=== PATIENT | male | born 1940 | race Caucasian/White ===

== ENCOUNTER 2017-07-25 11:54 | Inpatient (IN) | payer OTHER ==
[2017-07-25] VITALS (9 sets, daily range): BP systolic 120–150; BP diastolic 85–93; PULSE 74–88; RESP 15–22; TEMP 98.4–99.4; O2SAT 95–98
[~2017-07-25] VITALS: Ht 177.8 cm; Wt 101.5 kg
[~2017-07-25 11:54] MED LIST: CEPH250 PO; PERC5TAB12 PO
--- NOTE | 2017-07-25 12:36 | PD ---
HPI Chief Complaint: Respiratory Symptoms Time Seen by Provider: 12:03 Travel History International Travel<30 days: No Contact w/Intl Traveler<30days: No Traveled to known affect area: No History of Present Illness HPI 76-year-old male presents to the ED for evaluation of shortness of breath with exertion as well as chest discomfort. Per patient his been going on for about 3 weeks. Per patient about 3 weeks is started severe than he went no evidence on history having cold-like symptoms. Per patient is went away on its own as well and then for the past 3 days is having more shortness of breath. No cough. Shortness of breath with exertion also with laying down. He does state that sometimes when he exerts himself he has some chest pressure. He denies any history of cardiac disease. He denies taking any blood pressure medications or any medications at all. He states he has not taken anything for this. Per patient he went to an urgent care today and an EKG and some testing in the told to come here to get evaluated secondary to an abnormal EKG. He was not given any aspirin or any other medications. Has no allergies to medication. Per patient the pain is pressure-like and is 3 out of 10 but his concern is more the shortness of breath. He recently came from [place] on May. Denies any fevers chills or sweats at this time. Per patient for the most part his cough and runny nose has improved. PFSH Past Medical History Arthritis: Yes Cancer: No Cardiovascular Problems: No Diminished Hearing: No Endocrine: No Genitourinary: Yes Immune Disorder: No Kidney Stones: Yes Musculoskeletal: Yes Neurologic: No Psychiatric: No Reproductive: No Respiratory: No Tetanus Vaccination: Unknown ?: Not Past Surgical History Abdominal Surgery: No Cardiac Surgery: No Ear Surgery: No Endocrine Surgery: No Eye Surgery: No Genitourinary Surgery: Yes (Prostate removed) Gynecologic Surgery: No Oral Surgery: No Prostatectomy: Yes Thoracic Surgery: No Social History Alcohol Use: No Tobacco Use: No Substance Use: No Allergies-Medications (Allergen,Severity, Reaction): Coded Allergies: No Known Allergies (Unverified Adverse Reaction, Unknown, 07/25/17) Reported Meds & Prescriptions Reported Meds & Active Scripts Active Percocet 5-325 mg (Oxycodone/Acetaminophen) Oxycodone 5/325 Acetaminophen Tab 1- 2 Tab PO Q6H PRN Keflex 250 mg Cap (Cephalexin Monohydrate) 250 Mg Cap 250 Mg PO TID Review of Systems Except as stated in HPI: all other systems reviewed are Neg Physical Exam Narrative GENERAL: SKIN: Warm and dry. HEAD: Atraumatic. Normocephalic. EYES: Pupils equal and round. No scleral icterus. No injection or drainage. ENT: No nasal bleeding or discharge. Mucous membranes pink and moist. Tongue is midline. No uvula deviation. NECK: Trachea midline. No JVD. CARDIOVASCULAR: Regular rate and rhythm. No murmur, S3, S4. RESPIRATORY: No accessory muscle use. Clear to auscultation. Breath sounds equal bilaterally. GASTROINTESTINAL: Abdomen soft, non-tender, nondistended. Hepatic and splenic margins not palpable. MUSCULOSKELETAL: Extremities without clubbing, cyanosis, or edema. No obvious deformities. Full range of motion of the upper and lower extremities bilaterally. 2+ pulses bilaterally. NEUROLOGICAL: Awake and alert. No obvious cranial nerve deficits. Motor grossly within normal limits. Five out of 5 muscle strength in the arms and legs. Normal speech. PSYCHIATRIC: Appropriate mood and affect; insight and judgment normal. Data Data Last Documented VS Vital Signs Date Time Temp Pulse Resp B/P (MAP) Pulse Ox O2 Delivery O2 Flow Rate FiO2 07/25/17 12:19 77 22 142/92 (109) 96 Room Air 07/25/17 11:54 98.6 Orders Orders Electrocardiogram (07/25/17 ) Electrocardiogram (07/25/17 12:09) Complete Blood Count With Diff (07/25/17 12:09) Comprehensive Metabolic Panel (07/25/17 12:09) Ckmb (Isoenzyme) Profile (07/25/17 12:09) Troponin I (07/25/17 12:09) B-Type Natriuretic Peptide (07/25/17 12:09) Prothrombin Time / Inr (Pt) (07/25/17 12:09) Act Partial Throm Time (Ptt) (07/25/17 12:09) Lipase (07/25/17 12:09) D-Dimer (07/25/17 12:09) Magnesium (Mg) (07/25/17 12:09) Chest, Single Ap (07/25/17 12:09) Iv Access Insert/Monitor (07/25/17 12:09) Ecg Monitoring (07/25/17 12:09) Oximetry (07/25/17 12:09) Aspirin (Aspirin) (07/25/17 12:45) Ct Pulmonary Angiogram (07/25/17 ) Iohexol 350 Inj (Omnipaque 350 Inj) (07/25/17 13:20) Admit Order (Ed Use Only) (07/25/17 14:22) Labs Laboratory Tests Test 07/25/17 12:15 White Blood Count 12.8 TH/MM3 Red Blood Count 5.30 MIL/MM3 Hemoglobin 15.7 GM/DL Hematocrit 47.1 % Mean Corpuscular Volume 89.0 FL Mean Corpuscular Hemoglobin 29.6 PG Mean Corpuscular Hemoglobin Concent 33.3 % Red Cell Distribution Width 14.4 % Platelet Count 236 TH/MM3 Mean Platelet Volume 7.6 FL Neutrophils (%) (Auto) 65.7 % Lymphocytes (%) (Auto) 25.4 % Monocytes (%) (Auto) 6.5 % Eosinophils (%) (Auto) 1.9 % Basophils (%) (Auto) 0.5 % Neutrophils # (Auto) 8.4 TH/MM3 Lymphocytes # (Auto) 3.2 TH/MM3 Monocytes # (Auto) 0.8 TH/MM3 Eosinophils # (Auto) 0.2 TH/MM3 Basophils # (Auto) 0.1 TH/MM3 CBC Comment DIFF FINAL Differential Comment Prothrombin Time 10.8 SEC Prothromb Time International Ratio 1.1 RATIO Activated Partial Thromboplast Time 26.2 SEC D-Dimer Quantitative (PE/DVT) 4.30 MG/L FEU Blood Urea Nitrogen 32 MG/DL Creatinine 1.42 MG/DL Random Glucose 89 MG/DL Total Protein 7.5 GM/DL Albumin 3.6 GM/DL Calcium Level 8.5 MG/DL Magnesium Level 2.0 MG/DL Alkaline Phosphatase 89 U/L Aspartate Amino Transf (AST/SGOT) 27 U/L Alanine Aminotransferase (ALT/SGPT) 34 U/L Total Bilirubin 0.6 MG/DL Sodium Level 142 MEQ/L Potassium Level 4.0 MEQ/L Chloride Level 109 MEQ/L Carbon Dioxide Level 26.8 MEQ/L Anion Gap 6 MEQ/L Estimat Glomerular Filtration Rate 49 ML/MIN Total Creatine Kinase 81 U/L Troponin I 0.10 NG/ML B-Type Natriuretic Peptide 252 PG/ML Lipase 108 U/L MDM Medical Decision Making Medical Screen Exam Complete: Yes Emergency Medical Condition: Yes Medical Record Reviewed: Yes Interpretation(s) CBC & BMP Diagram 07/25/17 12:15 Total Protein 7.5, Albumin 3.6, Calcium Level 8.5, Magnesium Level 2.0, Alkaline Phosphatase 89, Aspartate Amino Transf (AST/SGOT) 27, Alanine Aminotransferase (ALT/SGPT) 34, Total Bilirubin 0.6 Last Impressions Chest X-Ray 07/25/17 1209 Signed Impressions: Service Date/Time: Tuesday, July 25, 2017 12:35 - CONCLUSION: No acute disease. Kelvin Loomis MD CT Angiography 07/25/17 0000 Signed Impressions: Service Date/Time: Tuesday, July 25, 2017 13:15 - CONCLUSION: 1. Large bilateral compatible is an occluding both right and left main pulmonary arteries distally with sparing of the upper lobes. 2. 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 Ubaldo Canales MD troponin elevated at 0.10 CK WNL d-dimmer elevated at 4 Differential Diagnosis Chest pain versus atypical chest pain versus ACS versus CHF versus pneumonia versus PE Narrative Course 76-year-old male that presents to the ED for evaluation of shortness of breath and chest pain. Patient was properly examined and was found to have signs and symptoms of unclear etiology at this time. Labs and imaging were ordered. Labs and imaging were positive for significant pulmonary embolism. My attending was called by radiologist who was told the results to my attending. My attending spoke with the patient in regards to need for hospitalization and possible TPA versus heparin. Case was discussed with warehouse analyst Dr. Lebron who will evaluate the patient and admitted the patient. Patient and family were aware of findings and agreed to admission. Diagnosis Primary Impression: Pulmonary embolism Qualified Codes: I26.99 - Other pulmonary embolism without acute cor pulmonale Admitting Information Admitting Physician Requests: Admit Cuong Toledo Jul 25, 2017 12:36
[2017-07-25 12:40] LABS: AUTOMATED NEUTROPHIL # 8.4 TH/MM3 (1.8-7.7); BASOPHIL # 0.1 TH/MM3 (0-0.2); BASOPHIL % 0.5 % (0.0-2.0); EOSINOPHIL # 0.2 TH/MM3 (0-0.4); EOSINOPHIL % 1.9 % (0.0-4.0); HEMATOCRIT 47.1 % (39.0-51.0); HEMOGLOBIN 15.7 GM/DL (13.0-17.0); LYMPH % 25.4 % (9.0-44.0); LYMPHOCYTE # 3.2 TH/MM3 (1.0-4.8); MEAN CORPUSCULAR HEMOGLOBIN 29.6 PG (27.0-34.0); MEAN CORPUSCULAR HGB CONC 33.3 % (32.0-36.0); MEAN PLATELET VOLUME 7.6 FL (7.0-11.0); MONO % 6.5 % (0.0-8.0); MONOCYTE # 0.8 TH/MM3 (0-0.9); NEUT % 65.7 % (16.0-70.0); PLATELET COUNT 236 TH/MM3 (150-450); RED CELL DISTRIBUTION WIDTH 14.4 % (11.6-17.2); WHITE BLOOD COUNT 12.8 TH/MM3 (4.0-11.0)
[2017-07-25] MEDS ORDERED: ASPIRIN 325 MG TAB PO ONE (12:45)
[2017-07-25 12:51] LABS: D-DIMER 4.3 MG/L FEU (0.00-0.50); INTERNATIONAL NORMALIZED RATIO 1.1 RATIO; PROTHROMBIN TIME - PATIENT 10.8 SEC (9.8-11.6)
[2017-07-25 12:55] LABS: ALBUMIN 3.6 GM/DL (3.4-5.0); ALT (GPT) 34 U/L (12-78); AST (GOT) 27 U/L (15-37); BICARBONATE 26.8 MEQ/L (21.0-32.0); BLOOD UREA NITROGEN 32 MG/DL (7-18); CALCIUM 8.5 MG/DL (8.5-10.1); CHLORIDE 109 MEQ/L (98-107); CREATININE 1.42 MG/DL (0.60-1.30); GLOMERULAR FILTRATION RATE 49 ML/MIN (>89); GLUCOSE,RANDOM 89 MG/DL (74-106); LIPASE 108 U/L (73-393); SODIUM (NA) 142 MEQ/L (136-145)
[2017-07-25 13:00] LABS: ALKALINE PHOSPHATASE 89 U/L (45-117); TOTAL BILIRUBIN ADULT 0.6 MG/DL (0.2-1.0); TOTAL PROTEIN 7.5 GM/DL (6.4-8.2)
--- NOTE | 2017-07-25 13:01 | RADRPT ---
EXAM DATE/TIME: 07/25/2017 12:35 [facility] COMPARISON: No previous studies available for comparison. INDICATIONS : Chest pain and pressure MEDICAL HISTORY : None. SURGICAL HISTORY : Prostatectomy. ENCOUNTER: Initial ACUITY: 1 day PAIN SCORE: 5/10 LOCATION: Bilateral chest FINDINGS: A single view of the chest demonstrates the lungs to be symmetrically aerated without evidence of mas s, infiltrate or effusion. The cardiomediastinal contours are unremarkable. Degenerative changes are noted throughout the thoracic spine. CONCLUSION: No acute disease. Kelvin Loomis MD on July 25, 2017 at 12:58 Board Certified Radiologist. This report was verified electronically.
[2017-07-25] MEDS ORDERED: IOHEXOL 350 MG/ML 10 ML VIAL (for RAD DIAG) IVCONTRAST ONE (13:20)
--- NOTE | 2017-07-25 13:55 | RADRPT ---
EXAM DATE/TIME: 07/25/2017 13:15 [facility] COMPARISON: No previous studies available for comparison. INDICATIONS : Shortness of breath and chest discomfort. IV CONTRAST: 69 cc Omnipaque 350 (iohexol) IV RADIATION DOSE: 20.49 CTDIvol (mGy) MEDICAL HISTORY : Renal calculi. SURGICAL HISTORY : None. ENCOUNTER: Initial ACUITY: 1 day PAIN SCALE: 3/10 LOCATION: Bilateral chest TECHNIQUE: Volumetric scanning of the chest was performed using a pulmonary embolism protocol MIP images were re constructed. Using automated exposure control and adjustment of the mA and/or kV according to patien t size, radiation dose was kept as low as reasonably achievable to obtain optimal diagnostic quality images. DICOM format image data is available electronically for review and comparison. Follow-up recommendations for detected pulmonary nodules are based at a minimum on nodule size and pa tient risk factors according to Fleischner Society Guidelines. FINDINGS: There is large bilateral pulmonary embolism in worse on the right on the left occluding the the dista l main right pulmonary artery and in the distal left pulmonary artery. There is perfusion to both upp er lobes. There is no evidence of pneumonia. No pleural effusions are identified. There is a severely enlarged thyroid gland bilaterally beginning at the level of the true cords exten ding below the thoracic inlet narrowing the tracheal dimension by least 50% in the transverse plane. Correlation be helpful versu history of stridor. CONCLUSION: 1. Large bilateral compatible is an occluding both right and left main pulmonary arteries distally wi th sparing of the upper lobes. 2. 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 Ubaldo Canales MD on July 25, 2017 at 13:46 Board Certified Radiologist. This report was verified electronically.
[2017-07-25] MEDS ORDERED: ONDANSETRON HCL 4 MG/2 ML VIAL IV PUSH PRN (15:00)
[2017-07-25] MEDS ORDERED: MAGNESIUM HYDROXIDE SUSP 30 ML CUP PO PRN (15:00)
[2017-07-25] MEDS ORDERED: POTASSIUM PHOSPHATE MONOBASIC 500 MG TAB PO PRN (15:00)
[2017-07-25] MEDS ORDERED: POTASSIUM CHLORIDE 25 MEQ EFFERVESCENT TAB PO PRN (15:00)
[2017-07-25] MEDS ORDERED: POTASSIUM PHOSPHATE MONOBASIC 500 MG TAB PO/TUBE PRN (15:00)
[2017-07-25] MEDS ORDERED: CHLORHEXIDINE GLUCONATE 2 % 1 PACK (2 CLOTHS) TOP PRN (15:00)
[2017-07-25] MEDS ORDERED: MAGNESIUM OXIDE 400 MG TAB PO PRN (15:00)
[2017-07-25] MEDS ORDERED: RESP: ALBUTEROL 2.5 MG/IPRATROPIUM 0.5 MG NEB (PRN) INH (15:00)
[2017-07-25] MEDS ORDERED: ALTEPLASE INJ 50 MG in WATER STERILE FOR INJ 50 ML IV ONE (15:00)
[2017-07-25] MEDS ORDERED: MAGNESIUM SULFATE INJ 4 GM in SODIUM CHLORIDE 0.9% INJ 92 ML IV PRN (15:00)
[2017-07-25] MEDS ORDERED: POTASSIUM PHOSPHATE INJ 30 MMOL in SODIUM CHLOR 0.9% 250 ML INJ 250 ML IV PRN (15:00)
[2017-07-25] MEDS ORDERED: POTASSIUM CHLOR 40 MEQ PREMIX 100 ML IV PRN ×2 (15:00)
[2017-07-25] MEDS ORDERED: MISCELLANEOUS NURSING INFORMATION XX SCH (15:00)
[2017-07-25] MEDS ORDERED: POTASSIUM CHLOR 20 MEQ PREMIX 100 ML IV PRN ×2 (15:00)
[2017-07-25] MEDS ORDERED: SODIUM PHOSPHATE INJ 30 MMOL in SODIUM CHLOR 0.9% 250 ML INJ 240 ML IV PRN (15:00)
[2017-07-25] MEDS ORDERED: MAGNESIUM SULFATE INJ 2 GM in SODIUM CHLORIDE 0.9% INJ 96 ML IV PRN (15:00)
--- NOTE | 2017-07-25 15:02 | HHI.HP ---
[facility] Service Critical Care Medicine Primary Care Physician No Primary Care Physician Admission Diagnosis submassive pulmonary embolism Diagnosis: Chief Complaint: shortness of breath Travel History International Travel<30 Days: No Contact w/Intl Traveler <30 Da: No Traveled to Known Affected Are: No History of Present Illness this is a 76yM otherwise healthy who presents with a few days of shortness of breath which culminated in acute dyspnea today. he states he can't even get out of bed or walk without being severely short of breath. he has no history of this. he and his are from [place], and take a 3-day long car trip back and forth twice a year, but the last time he had a long car ride was in May. he is usually very active. He denies any fevers, chills, chest pain, palpitations, cough, sputum production. denies n/v/c/d or abdominal pain. otherwise has been in his usual state of health. does have a known goiter that he states is smaller than it was a year ago. he says he "had a test on this and they told him it wasn't cancer a year ago." He also had prostate cancer > 10 years ago and had a prostatectomy and since then he states he has been cancer free. In the ED, a CT pulmonary angiogram demonstrated near-saddle pulmonary embolism with near-complete obstruction of all subsegmental arteries. BNP and troponins are elevated in a pattern to suggest biomarker evidence of RV strain. STAT 2d echo demonstrates acute right ventricular dilation and dysfunction with severe pulmonary hypertension. Critical care medicine has been consulted to evaluate and manage his sub-massive pulmonary embolism with associated dyspnea. Review of Systems Constitutional: DENIES: Diaphoretic episodes, Fatigue, Fever, Weight gain, Weight loss, Chills, Night Sweats Respiratory: COMPLAINS OF: Shortness of breath, DENIES: Apneas, Cough, Snoring , Wheezing, Hemoptysis, Sputum production Cardiovascular: COMPLAINS OF: Dyspnea on Exertion, DENIES: Chest pain, Palpitations, Syncope, PND, Lower Extremity Edema, Orthopnea, Claudication Gastrointestinal: DENIES: Abdominal pain, Black stools, Bloody stools, Constipation, Diarrhea, Nausea, Vomiting Hematologic/lymphatic: DENIES: Bruising Neurologic: DENIES: Headache Psychiatric: DENIES: Anxiety, Confusion Past Family Social History Allergies: Coded Allergies: No Known Allergies (Unverified Allergy, Unknown, 07/25/17) Past Medical History prior prostate cancer, in remission per patient thyromegally, "has been checked a year ago and there wasn't cancer there. It has gone down in size in the last year" Past Surgical History prostatectomy Reported Medications Percocet 5-325 mg (Oxycodone/Acetaminophen) Oxycodone 5/325 Acetaminophen Tab 1- 2 Tab PO Q6H PRN Keflex 250 mg Cap (Cephalexin Monohydrate) 250 Mg Cap 250 Mg PO TID does not take aspirin or any blood thinners. Active Ordered Medications See MAR Family History no family history of bleeding disorders or blood clotting disorders. Social History never smoked, does not drink etoh. denies other drugs. Physical Exam Vital Signs Vital Signs Date Time Temp Pulse Resp B/P (MAP) Pulse Ox O2 Delivery O2 Flow Rate FiO2 07/25/17 12:19 77 22 142/92 (109) 96 Room Air 07/25/17 11:54 98.6 88 18 145/85 (105) 95 Physical Exam GENERAL: Elderly male, sitting in bed, in distress due to his dyspnea HEENT: Normocephalic. Atraumatic. Pupils equal, round, reactive, conjugate. Mucous membranes are moist NECK: Trachea is midline. There is no JVD. CHEST: Tachypneic, mildly labored. Room air. CARDIOVASCULAR: Tachycardic rate, regular rhythm. Sinus by telemetry ABDOMEN: Soft, nontender, nondistended. No guarding. MUSCULOSKELETAL: Pulses 2+. No peripheral edema. NEUROLOGICAL: GCS 15. RASS 0. No focal deficits. Follows commands. Laboratory Laboratory Tests Test 07/25/17 12:15 White Blood Count 12.8 Red Blood Count 5.30 Hemoglobin 15.7 Hematocrit 47.1 Mean Corpuscular Volume 89.0 Mean Corpuscular Hemoglobin 29.6 Mean Corpuscular Hemoglobin Concent 33.3 Red Cell Distribution Width 14.4 Platelet Count 236 Mean Platelet Volume 7.6 Neutrophils (%) (Auto) 65.7 Lymphocytes (%) (Auto) 25.4 Monocytes (%) (Auto) 6.5 Eosinophils (%) (Auto) 1.9 Basophils (%) (Auto) 0.5 Neutrophils # (Auto) 8.4 Lymphocytes # (Auto) 3.2 Monocytes # (Auto) 0.8 Eosinophils # (Auto) 0.2 Basophils # (Auto) 0.1 CBC Comment DIFF FINAL Differential Comment Prothrombin Time 10.8 Prothromb Time International Ratio 1.1 Activated Partial Thromboplast Time 26.2 D-Dimer Quantitative (PE/DVT) 4.30 Blood Urea Nitrogen 32 Creatinine 1.42 Random Glucose 89 Total Protein 7.5 Albumin 3.6 Calcium Level 8.5 Magnesium Level 2.0 Alkaline Phosphatase 89 Aspartate Amino Transf (AST/SGOT) 27 Alanine Aminotransferase (ALT/SGPT) 34 Total Bilirubin 0.6 Sodium Level 142 Potassium Level 4.0 Chloride Level 109 Carbon Dioxide Level 26.8 Anion Gap 6 Estimat Glomerular Filtration Rate 49 Total Creatine Kinase 81 Troponin I 0.10 B-Type Natriuretic Peptide 252 Lipase 108 Result Diagram: 07/25/17 1215 07/25/17 1215 Imaging Last Impressions Chest X-Ray 07/25/17 1209 Signed Impressions: Service Date/Time: Tuesday, July 25, 2017 12:35 - CONCLUSION: No acute disease. Kelvin Loomis MD Lower Extremity Ultrasound 07/25/17 0000 Signed Impressions: Service Date/Time: Tuesday, July 25, 2017 16:43 - CONCLUSION: No evidence of DVT Jose Stephenson MD CT Angiography 07/25/17 0000 Signed Impressions: Service Date/Time: Tuesday, July 25, 2017 13:15 - CONCLUSION: 1. Large bilateral compatible is an occluding both right and left main pulmonary arteries distally with sparing of the upper lobes. 2. 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 MD Jj Clark VTE Risk Assessment Caprini VTE Risk Assessment: Mod/High Risk (score >= 2) Caprini Risk Assessment Model Point Value = 1 Point Value = 2 Point Value = 3 Point Value = 5 Age 41-60 Minor surgery BMI > 25 kg/m2 Swollen legs Varicose veins or History of unexplained or recurrent spontaneous Oral contraceptives or hormone replacement Sepsis (< 1 month) Serious lung disease, including pneumonia (< 1 month) Abnormal pulmonary function Acute myocardial infarction Congestive heart failure (< 1 month) History of inflammatory bowel disease Medical patient at bed rest Age 61-74 Arthroscopic surgery Major open surgery (> 45 min) Laparoscopic surgery (> 45 min) Malignancy Confined to bed (> 72 hours) Immobilizing plaster cast Central venous access Age >= 75 History of VTE Family history of VTE Factor V Leiden Prothrombin [id number] Lupus anticoagulant Anticardiolipin antibodies Elevated serum homocysteine Heparin-induced thrombocytopenia Other congenital or acquired thrombophilia Stroke (< 1 month) Elective arthroplasty Hip, pelvis, or leg fracture Acute spinal cord injury (< 1 month) Prophylaxis Regimen Total Risk Factor Score Risk Level Prophylaxis Regimen 0-1 Low Early ambulation 2 Moderate Order ONE of the following: *Sequential Compression Device (SCD) *Heparin 5000 units SQ BID 3-4 Higher Order ONE of the following medications: *Heparin 5000 units SQ TID *Enoxaparin/Lovenox 40 mg SQ daily (WT < 150 kg, CrCl > 30 mL/min) *Enoxaparin/Lovenox 30 mg SQ daily (WT < 150 kg, CrCl > 10-29 mL/min) *Enoxaparin/Lovenox 30 mg SQ BID (WT < 150 kg, CrCl > 30 mL/min) AND/OR *Sequential Compression Device (SCD) 5 or more Highest Order ONE of the following medications: *Heparin 5000 units SQ TID (Preferred with Epidurals) *Enoxaparin/Lovenox 40 mg SQ daily (WT < 150 kg, CrCl > 30 mL/min) *Enoxaparin/Lovenox 30 mg SQ daily (WT < 150 kg, CrCl > 10-29 mL/min) *Enoxaparin/Lovenox 30 mg SQ BID (WT < 150 kg, CrCl > 30 mL/min) AND *Sequential Compression Device (SCD) Assessment and Plan Assessment and Plan Assessment: 76 old male with submassive pulmonary embolism. I have had extensive discussion with the patient and his regarding the risk/benefit ratio of conservative management with anticoagulation alone vs. the risk/ benefit ratio of lytic therapy. We discussed the ~10% risk of major life- threatening bleeding with iv TPA administration, including but not limited to life-threatening intracranial and GI bleeding. We also discussed the elevated risk of sudden cardiac in the coming weeks associated with submassive PE, as well as the almost 30% risk of development of severe WHO Class IV Pulmonary Hypertension secondary to Chronic Thromboembolic Pulmonary Hypertension (CTEPH) if patients are not lysed with this degree of clot burden. After a full discussion of the risks and benefits, the patient and his elect to pursue lytic therapy. 50mg iv TPA continuous infusion over 1 hour was emergently ordered and administered in the emergency department, following which a no- bolus heparin drip was initiated. The patient will be transferred to the CVICU for close monitoring. given his clot burden and both echocardiographic and biomarker evidence of significant RV strain, the patient remains critically ill and at high risk for sudden cardiac due to submassive PE. Submassive PE Severe RV Dysfunction Severe Pulmonary Hypertension - admit to CVICU - 50mg iv TPA - heparin drip - frequent neuro checks - trend hgb - nc for goal spo2 > 90% - unclear etiology for this PE: history of prior cancers, but nothing active. no history of hypercoagulable state. may need additional work-up in the future. - b/l LE ultrasound to eval for additional clot burden. - goal sbp < 180. - bedrest. hob elevated. - heart healthy diet as tolerated - scd's, pepcid. heparin drip for ppx. Critical care time: 46 minutes, exclusive of separately billable procedures. Code Status Full Code Jaquan Zavala MD Jul 25, 2017 15:02
[2017-07-25] MEDS: SODIUM CHLOR 0.9% 1000 ML INJ 1,000 ML IV SCH (16:35)
[2017-07-25] MEDS: HEPARIN-D5W 25,000 U/250 ML 250 ML IV PRN (16:37)
--- NOTE | 2017-07-25 17:01 | ECHRPT ---
Indication: EF assessment for CHF CONCLUSIONS The left ventricular systolic function is low normal with an estimated ejection fraction in the rang e of 50- 55%. Wall thickness is measured at the upper limits of normal. Normal left ventricular size. There is severe tricuspid regurgitation. The estimated pulmonary arterial pressure is 79.2 mmHg. There is estimated severe pulmonary hypertension present ( > 70 mmHg). The right atrial size is [id number] dilated. The right ventricle is moderately dilated. BP: / HR: Rhythm: Sinus MEASUREMENTS (Male / Female) Normal Values Technical Quality:Good 2D ECHO LV Diastolic Diameter PLAX 4.3 cm 4.2 - 5.9 / 3.9 - 5.3 cm LV Systolic Diameter PLAX 3.4 cm IVS Diastolic Thickness 1.1 cm 0.6 - 1.0 / 0.6 - 0.9 cm LVPW Diastolic Thickness 1.1 cm 0.6 - 1.0 / 0.6 - 0.9 cm LV Relative Wall Thickness 0.5 DOPPLER TR Peak Velocity 416.0 cm/s TR Peak Gradient 69.2 mmHg Right Atrial Pressure 10.0 mmHg Pulmonary Artery Systolic Pressu 79.2 mmHg Right Ventricular Systolic Press 79.2 mmHg FINDINGS LEFT VENTRICLE The left ventricular systolic function is low normal with an estimated ejection fraction in the rang e of 50- 55%. Wall thickness is measured at the upper limits of normal. Normal left ventricular size. RIGHT VENTRICLE The right ventricle is moderately dilated. LEFT ATRIUM The left atrial size is normal. RIGHT ATRIUM The right atrial size is [id number] dilated. ATRIAL SEPTUM Normal atrial septal thickness without atrial level shunting by limited color doppler interrogation. AORTA The aortic root and proximal ascending aorta are normal in size on limited imaging. MITRAL VALVE Structurally normal mitral valve. No mitral valve stenosis or regurgitation. AORTIC VALVE Trileaflet aortic valve. No aortic valve stenosis or regurgitation. TRICUSPID VALVE There is severe tricuspid regurgitation. The estimated pulmonary arterial pressure is 79.2 mmHg. There is estimated severe pulmonary hypertension present ( > 70 mmHg). PULMONARY VALVE No pulmonary valve regurgitation or stenosis. VESSELS The inferior vena cava is normal in size. PERICARDIUM No pericardial effusion. Jose Sanon MD (Electronically Signed) Final Date:25 July 2017 16:59
--- NOTE | 2017-07-25 18:03 | RADRPT ---
EXAM DATE/TIME: 07/25/2017 16:43 [facility] COMPARISON: No previous studies available for comparison. INDICATIONS : Pulmonary embolism. MEDICAL HISTORY : Renal calculi. Arthritis. Pulmonary embolism. Anticoagulant therapy, Heparin. SURGICAL HISTORY : Prostatectomy. ENCOUNTER: Initial ACUITY: 2 day PAIN SCORE: 0/10 LOCATION: Bilateral leg. TECHNIQUE: Venous ultrasound of the left and right leg was performed from the inguinal ligament to the proximal calf. Real-time, color Doppler and spectral tracing, compression and augmentation techniques were us ed. FINDINGS: RIGHT LEG: There is normal compressibility of the deep venous system from the inguinal region to the proximal ca lf. No echogenic clot is seen in the lumen of the common femoral, femoral, popliteal, and posterior tibial veins. There is a normal response of the venous system to proximal and distal augmentation an d respiration. LEFT LEG: There is normal compressibility of the deep venous system from the inguinal region to the proximal ca lf. No echogenic clot is seen in the lumen of the common femoral, femoral, popliteal, and posterior tibial veins. There is a normal response of the venous system to proximal and distal augmentation an d respiration. CONCLUSION: No evidence of DVT Jose Stephenson MD on July 25, 2017 at 18:00 Board Certified Radiologist. This report was verified electronically.
[2017-07-25] MEDS: FAMOTIDINE 20 MG/2 ML VIAL IV PUSH SCH (20:24)
[2017-07-25] MEDS: DOCUSATE SODIUM 50 MG/SENNA 8.6 MG TAB PO SCH (21:00)
[2017-07-26] VITALS (9 sets, daily range): BP systolic 131–141; BP diastolic 79–92; PULSE 65–79; RESP 16–22; TEMP 98–98.7; O2SAT 95–98
[2017-07-26] MEDS: SODIUM CHLOR 0.9% 1000 ML INJ 1,000 ML IV SCH (02:48)
[2017-07-26] MEDS: HEPARIN-D5W 25,000 U/250 ML 250 ML IV PRN ×2 (03:24→16:03)
[2017-07-26] MEDS: CHLORHEXIDINE GLUCONATE 2 % 1 PACK (2 CLOTHS) TOP SCH (04:00)
[2017-07-26 04:09] LABS: HEMOGLOBIN 13.8 GM/DL (13.0-17.0); MEAN CELL VOLUME 89.1 FL (80.0-100.0); MEAN CORPUSCULAR HGB CONC 33.7 % (32.0-36.0); MEAN PLATELET VOLUME 8.1 FL (7.0-11.0); PLATELET COUNT 178 TH/MM3 (150-450); RED CELL DISTRIBUTION WIDTH 14.4 % (11.6-17.2); WHITE BLOOD COUNT 10.8 TH/MM3 (4.0-11.0)
[2017-07-26 04:23] LABS: BICARBONATE 24.4 MEQ/L (21.0-32.0); CALCIUM 8.1 MG/DL (8.5-10.1); CREATININE 1.09 MG/DL (0.60-1.30)
[2017-07-26] MEDS: DOCUSATE SODIUM 50 MG/SENNA 8.6 MG TAB PO SCH ×2 (08:42→21:00)
[2017-07-26] MEDS: FAMOTIDINE 20 MG/2 ML VIAL IV PUSH SCH ×2 (08:43→20:47)
--- NOTE | 2017-07-26 12:33 | HHI.CCPN ---
Subjective Remarks/Hospital Course this is a 76yM otherwise healthy who presents with a few days of shortness of breath which culminated in acute dyspnea today. he states he can't even get out of bed or walk without being severely short of breath. he has no history of this. he and his are from [place], and take a 3-day long car trip back and forth twice a year, but the last time he had a long car ride was in May. he is usually very active. He denies any fevers, chills, chest pain, palpitations, cough, sputum production. denies n/v/c/d or abdominal pain. otherwise has been in his usual state of health. does have a known goiter that he states is smaller than it was a year ago. he says he "had a test on this and they told him it wasn't cancer a year ago." He also had prostate cancer > 10 years ago and had a prostatectomy and since then he states he has been cancer free. In the ED, a CT pulmonary angiogram demonstrated near-saddle pulmonary embolism with near-complete obstruction of all subsegmental arteries. BNP and troponins are elevated in a pattern to suggest biomarker evidence of RV strain. STAT 2d echo demonstrates acute right ventricular dilation and dysfunction with severe pulmonary hypertension. Critical care medicine has been consulted to evaluate and manage his sub-massive pulmonary embolism with associated dyspnea. 07/26: Patient is on 2L oxygen with good sats. On Heparin drip. awake and alert. Objective Vital Signs Date Time Temp Pulse Resp B/P (MAP) Pulse Ox O2 Delivery O2 Flow Rate FiO2 07/26/17 11:00 73 07/26/17 11:00 98.0 20 141/88 (105) 96 07/26/17 11:00 Nasal Cannula 2.00 Intake and Output 07/26/17 07/26/17 07/27/17 08:00 16:00 00:00 Intake Total 1723 ml Output Total 900 ml Balance 823 ml Result Diagram: 07/26/174 07/26/17 0314 Other Results Laboratory Tests Test 07/25/17 16:00 07/25/17 21:38 07/26/17 03:14 Nasal Screen MRSA (PCR) MRSA NOT DETECTED Activated Partial Thromboplast Time 43.9 SEC 60.1 SEC White Blood Count 10.8 TH/MM3 Red Blood Count 4.60 MIL/MM3 Hemoglobin 13.8 GM/DL Hematocrit 41.0 % Mean Corpuscular Volume 89.1 FL Mean Corpuscular Hemoglobin 30.0 PG Mean Corpuscular Hemoglobin Concent 33.7 % Red Cell Distribution Width 14.4 % Platelet Count 178 TH/MM3 Mean Platelet Volume 8.1 FL Blood Urea Nitrogen 26 MG/DL Creatinine 1.09 MG/DL Random Glucose 88 MG/DL Calcium Level 8.1 MG/DL Sodium Level 140 MEQ/L Potassium Level 3.7 MEQ/L Chloride Level 107 MEQ/L Carbon Dioxide Level 24.4 MEQ/L Anion Gap 9 MEQ/L Estimat Glomerular Filtration Rate 66 ML/MIN Imaging Last Impressions Chest X-Ray 07/25/17 1209 Signed Impressions: Service Date/Time: Tuesday, July 25, 2017 12:35 - CONCLUSION: No acute disease. Kelvin Loomis MD Lower Extremity Ultrasound 07/25/17 0000 Signed Impressions: Service Date/Time: Tuesday, July 25, 2017 16:43 - CONCLUSION: No evidence of DVT Jose Stephenson MD CT Angiography 07/25/17 0000 Signed Impressions: Service Date/Time: Tuesday, July 25, 2017 13:15 - CONCLUSION: 1. Large bilateral compatible is an occluding both right and left main pulmonary arteries distally with sparing of the upper lobes. 2. 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 Ubaldo Canales MD Objective Remarks GENERAL: Patient is lying in bed in NAD/ SKIN: Warm and dry. HEAD: Normocephalic. EYES: No scleral icterus. No injection or drainage. NECK: Supple, trachea midline. No JVD or lymphadenopathy. CARDIOVASCULAR: Regular rate and rhythm without murmurs, gallops, or rubs. RESPIRATORY: Breath sounds equal bilaterally. No accessory muscle use. GASTROINTESTINAL: Abdomen soft, non-tender, nondistended. MUSCULOSKELETAL: No cyanosis, or edema. Neuro: Awake and alert. A/P Assessment and Plan 1) Resp Insuff 2)Submassive PE s/p TPA 3)Severe RV Dysfunction, Severe Pulmonary Hypertension 4)Mild AUDREY Plan Neuro: Awake and alert Pulm: Continue with oxygen keep sat >92% Bronchodilators, Continue with heparin drip. Monitor PTT per protocol. CV: Monitor HR and BP keep MAP>65mmHg : Monitor renal function, electrolytes replacement as needed. d/c IVF GI: On PO diet ID: Monitor for signs of infections ( Fever, WBC) Heme: Monitor CBC, coags- on Heparin drip. Endo: SSI if needed for glycemic control. GI prophylaxis- on pepcid DVT prophylaxis- on Heparin drip. Doppler US LE negative for DVT Will transfer to [facility] and consult [facility] for medical management Level 2 Leandro Sanders MD Jul 26, 2017 12:33
--- NOTE | 2017-07-26 18:43 | EKG ---
Date Performed: 07/25/2017 Time Performed: 12:10:24 PTAGE: 76 years EKG: Sinus rhythm MODERATE T-WAVE ABNORMALITY, CONSIDER ANTERIOR ISCHEMIA Compared to previous tracing, there are now anterior T wave inversions concerning for ischemia Clinical correlation is recommended ABNORMAL ECG PREVIOUS TRACING : 11/10/2015 09.30 DOCTOR: Rachael Seo Interpretating Date/Time 07/26/2017 18:43:13
[2017-07-27] VITALS (29 sets, daily range): BP systolic 114–138; BP diastolic 60–81; PULSE 60–74; RESP 16–21; TEMP 97.8–98.4; O2SAT 94–99
[2017-07-27] MEDS: CHLORHEXIDINE GLUCONATE 2 % 1 PACK (2 CLOTHS) TOP SCH (04:00)
[2017-07-27 06:03] LABS: AUTOMATED NEUTROPHIL # 6.1 TH/MM3 (1.8-7.7); BASOPHIL # 0.1 TH/MM3 (0-0.2); BASOPHIL % 0.8 % (0.0-2.0); EOSINOPHIL # 0.3 TH/MM3 (0-0.4); EOSINOPHIL % 2.8 % (0.0-4.0); HEMATOCRIT 41.1 % (39.0-51.0); HEMOGLOBIN 14.1 GM/DL (13.0-17.0); LYMPH % 30.6 % (9.0-44.0); LYMPHOCYTE # 3.2 TH/MM3 (1.0-4.8); MEAN CELL VOLUME 88.6 FL (80.0-100.0); MEAN CORPUSCULAR HEMOGLOBIN 30.3 PG (27.0-34.0); MEAN CORPUSCULAR HGB CONC 34.2 % (32.0-36.0); MEAN PLATELET VOLUME 8.2 FL (7.0-11.0); MONO % 7.8 % (0.0-8.0); MONOCYTE # 0.8 TH/MM3 (0-0.9); PLATELET COUNT 183 TH/MM3 (150-450); RED BLOOD COUNT 4.64 MIL/MM3 (4.50-5.90); RED CELL DISTRIBUTION WIDTH 14.2 % (11.6-17.2); WHITE BLOOD COUNT 10.6 TH/MM3 (4.0-11.0)
[2017-07-27 06:29] LABS: BICARBONATE 24.4 MEQ/L (21.0-32.0); CALCIUM 8.4 MG/DL (8.5-10.1); CREATININE 1.05 MG/DL (0.60-1.30)
[2017-07-27] MEDS: HEPARIN-D5W 25,000 U/250 ML 250 ML IV PRN (06:40)
[2017-07-27] MEDS: FAMOTIDINE 20 MG/2 ML VIAL IV PUSH SCH ×2 (08:41→21:00)
[2017-07-27] MEDS: DOCUSATE SODIUM 50 MG/SENNA 8.6 MG TAB PO SCH ×2 (08:41→21:01)
[2017-07-27 12:41] LABS: FREE T4 1.15 NG/DL (0.76-1.46)
--- NOTE | 2017-07-27 12:44 | RADRPT ---
EXAM DATE/TIME: 07/27/2017 11:48 [facility] COMPARISON: No previous studies available for comparison. INDICATIONS : Pulmonary embolism. MEDICAL HISTORY : Renal calculi. Arthritis. Pulmonary embolism. Anticoagulant therapy, Heparin. SURGICAL HISTORY : Prostatectomy. ENCOUNTER: Initial ACUITY: 3 days PAIN SCORE: 0/10 LOCATION: Bilateral arm. FINDINGS: Patient is positive for occlusive or nonocclusive deep venous thrombosis in the left axillary vein an d left basilic vein. No DVT in the right upper extremity. Incidental note made of complex solid thyroid nodules measuring up to 3 cm bilaterally. Recommend cor relation with thyroid ultrasound. CONCLUSION: 1. Positive for occlusive and nonocclusive deep venous thrombosis in the left axillary vein and left basilic vein. Negative right upper extremity for DVT. 2. Complex 3 cm bilateral thyroid nodules. Recommend thyroid ultrasound. Benny Banerjee MD on July 27, 2017 at 12:41 Board Certified Radiologist. This report was verified electronically.
[2017-07-27] MEDS ORDERED: XARE20TA PO (14:43)
[2017-07-27] MEDS ORDERED: XARE15TA PO (14:43)
[2017-07-27] MEDS ORDERED: WARFARIN SOD 5 MG TAB PO SCH (16:00)
[2017-07-27] MEDS ORDERED: RIVAROXABAN 15 MG TAB PO ONE (16:00)
--- NOTE | 2017-07-27 18:42 | MB ---
cc: FREDI PINTO M.D., JEFFREY D. MD DATE OF CONSULTATION: 07/27/[address] Cooper REASON FOR CONSULTATION Hematology consulted to render opinion guarding patient with massive pulmonary embolism. HISTORY OF PRESENT ILLNESS: The patient is very pleasant 76-year-old male from [facility], spending his time in [place], presented with complaint of worsening shortness of breath. He stated he started having shortness of breath about 3-4 weeks ago. He had upper respiratory infection that turned to pneumonia. However, his symptoms were progressively getting worse and by Wednesday, "could not even get out of bed and walk across a room." He was brought into the emergency room and CT scan showed massive bilateral pulmonary embolism. He had evidence of right heart strain. He received thrombolytic therapy yesterday. He is feeling much better today. He had history of prostate cancer about 20 years ago but stated the PSA has been very low. The last time he checked was about two years ago. He denies any constitutional symptoms. He denies any personal history or family history of thromboembolic event. He denies any lower extremity edema or upper extremity edema. He states the pleuritic pain has resolved. He has no nausea, vomiting or abdominal pain. PAST MEDICAL HISTORY Prostate cancer diagnosed more than 20 years ago. Goiter. PAST SURGICAL HISTORY Prostatectomy more than 20 years ago. Biopsy of thyroid nodule in 2017. FAMILY HISTORY: Two brothers, one brother had some sort of cancer. He has three sons, one daughter, all healthy. No family history of thromboembolic event. SOCIAL HISTORY: No tobacco. He drinks occasionally. He lives in [facility]. 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 ALLERGIES: NO KNOWN DRUG ALLERGIES. CURRENT MEDICATIONS: 1. Xarelto. 2. Famotidine. 3. Jaye-Colace REVIEW OF SYSTEMS: Constitutional: Negative. Eyes: Negative. ENT: Negative. Cardiovascular: As above. Respiratory: As above. GI: Denies any nausea, vomiting, diarrhea, abdominal pain. No change in bowel habits. : No dysuria, hematuria. Musculoskeletal: Negative. Endocrine: Negative. Hematology: As above. Dermatology: Negative. Psychiatric: Negative. Neurologic: Negative. PHYSICAL EXAMINATION Vitals: Temperature 97.8, blood pressure 128/77, O2 saturation 92% on room air. General: He is alert and oriented x3. No acute distress. HEENT: Atraumatic, normocephalic. Pupils equal, round and reactive to light. Extraocular muscles intact. No scleral icterus. Oropharynx: Dry mucosa, no lesions. No thrush. Neck: No thyromegaly. No palpable masses. Lymphatic: No palpable cervical, clavicular, axillary lymph node. Cardiovascular: Regular S1-S2, no murmurs. Lungs: Clear to auscultation bilaterally. No wheezing. Abdomen: Soft, nontender. I could not palpate liver or spleen. Extremities: No significant edema. Lower extremities: Could not palpate any calf tenderness. There is only slight puffiness of bilateral upper extremities. No paravertebral tenderness. Skin: No rash or petechiae. LABORATORY DATA: Laboratory data dated 07/27/2017 was reviewed. ASSESSMENT: 1. Massive pulmonary embolism and left upper extremity deep venous thrombosis which appeared to be unprovoked. He has no personal history or family history of thromboembolic event. There is no obvious inciting event. He started having shortness of breath about three weeks ago. He is progressively getting worse. On presentation CT angiogram showed large bilateral saddle embolism occluding both right and left main pulmonary artery with evidence of right heart strain. Echocardiogram showed pulmonary hypertension and dilated right chambers. He underwent thrombolytic therapy yesterday. He had a great response. His symptoms have significantly improved today. When I saw him, he was not on oxygen. He was able to ambulate to the bathroom without significant shortness of breath. Ultrasound of the upper extremities showed thrombus in the left axillary and basilic vein, It is very unusual for upper extremity blood clot to embolize to the lung, especially with such big clot burden. Given that he has unprovoked thromboembolic event, I would recommend long-term anticoagulation. Also suggest doing hypercoagulable workup but this is not a right time to do it. This can be done as an outpatient in the future. Could also consider getting CT of the abdomen and pelvis to make sure he does not have any occult malignancy, but again this can be done as an outpatient. The patient was switched over to Xarelto this afternoon. I would recommend observing him overnight to see how he tolerates the Xarelto. Given his massive clot, we want to make sure he does not develop extension of clot while on the Xarelto. Discussed with the patient and his . Their questions were answered. 2. History of prostate cancer, status post prostatectomy more than 20 years ago. Reportedly his PSA has been very low. 3. Goiter, negative biopsy. RECOMMENDATIONS: Discussion with the patient and his . Agree with Xarelto and recommend observing overnight while on Xarelto. If he remains stable tomorrow he could be discharged and follow up in the outpatient clinic. Thank you, Dr. Cooper, for asking me to see this patient. MD NOBLE Artis/GRADY /5:49 PM /6:12 PM MTDSummer
--- NOTE | 2017-07-27 19:00 | HHI.PR ---
Subjective Remarks Patient says he is feeling well. Reports pleuritic type chest pain very mild. Reports shortness of breath has resolved. He does give history of thyroid mass which has been biopsied and benign in the past. Patient reports that he is visiting from [place], however does have emergency insurance which will cover short-term outpatient medication regimen. I discussed with him the need to continue treatment for at least 6 months. Objective Vital Signs Date Time Temp Pulse Resp B/P (MAP) Pulse Ox O2 Delivery O2 Flow Rate FiO2 07/27/17 18:00 64 07/27/17 17:00 66 07/27/17 16:00 68 07/27/17 16:00 92 Room Air 07/27/17 16:00 97.8 68 20 128/77 (94) 99 07/27/17 14:00 66 07/27/17 13:00 62 07/27/17 12:00 66 07/27/17 11:13 92 Room Air 07/27/17 11:13 98.0 72 20 132/78 (96) 99 07/27/17 11:00 64 07/27/17 10:00 66 07/27/17 09:00 60 07/27/17 08:00 60 07/27/17 08:00 97.9 72 20 138/81 (100) 99 07/27/17 07:48 98 Nasal Cannula 2.00 07/27/17 07:41 95 Nasal Cannula 2.00 07/27/17 07:00 62 07/27/17 06:00 60 07/27/17 05:08 66 07/27/17 04:41 Nasal Cannula 2.00 07/27/17 04:00 66 07/27/17 03:27 98.2 67 20 123/76 (92) 98 07/27/17 03:09 94 Nasal Cannula 2.00 07/27/17 03:09 71 07/27/17 02:00 61 07/27/17 01:03 64 07/27/17 00:00 98.4 69 20 133/79 (97) 98 07/27/17 00:00 67 07/26/17 23:05 73 07/26/17 23:05 94 Nasal Cannula 2.00 07/26/17 21:00 98.5 67 20 138/79 (98) 98 07/26/17 20:00 98 Nasal Cannula 2.00 07/26/17 20:00 67 I/O 07/26/17 07/26/17 07/26/17 07/27/17 07/27/17 07/27/17 07:00 15:00 23:00 07:00 15:00 23:00 Intake Total 1723 ml 2088 ml 456 ml 1587 ml Output Total 900 ml 1450 ml 1450 ml 1460 ml Balance 823 ml 638 ml -994 ml 127 ml Intake Oral 400 ml 800 ml 240 ml 1215 ml IV Total 1323 ml 1288 ml 216 ml 372 ml Output Urine Total 900 ml 1450 ml 1450 ml 1460 ml # Voids 3 # Bowel Movements 0 1 Result Diagram: 07/27/1752907/27/17529 Objective Remarks GENERAL: sitting up in bed. Appears comfortable. Alert and oriented 4. SKIN: Warm and dry. HEAD: Normocephalic. EYES: No scleral icterus. No injection or drainage. NECK: Supple, trachea midline. Unable to assess JVD secondary to body habitus CARDIOVASCULAR: Regular rate and rhythm without murmurs, gallops, or rubs. RESPIRATORY: Breath sounds equal bilaterally. No accessory muscle use. GASTROINTESTINAL: Abdomen soft, non-tender, nondistended. MUSCULOSKELETAL: No cyanosis. Patient does have some trace left upper extremity edema without erythema. perfusion intact BACK: Nontender without obvious deformity. No CVA tenderness. A/P Assessment and Plan = 07/27/17 Discontinue heparin drip, switched to Xarelto. Discussed with oncology, who recommends monitoring overnight on Xarelto. Patient is from [place], although does have emergency traveler's insurance. //Acute bilateral pulmonary embolism with hemodynamic instability on admission. Much improved after TPA. -Although negative bilateral lower extremities for DVT, positive left upper extremity DVT. -Discussed extensively with patient, and Xarelto makes the most sense. Appreciate oncology assistance. Discontinue heparin drip, start Xarelto. Discharge tomorrow if stable. //Thyroid mass. Biopsied and benign as outpatient. Follow-up with primary care. //Pulmonary hypertension. Likely secondary to pulmonary embolism. Expect this has significantly improved already. Follow-up with primary care. //AUDREY. Resolved. Discharge Planning disCharge home tomorrow morning on Xarelto if stable. Britton Cooper MD Jul 27, 2017 19:00
--- NOTE | 2017-07-27 19:01 | HHI.DS ---
Discharge Summary Admission Date Jul 25, 2017 at 14:23 Discharge Date: Jul 28, 2017 Admitting Diagnosis submassive pulmonary embolism (1) Pulmonary embolism ICD Code: I26.99 - Other pulmonary embolism without acute cor pulmonale Status: Acute Procedures TPA infusion. Brief History - From Admission this is a 76yM otherwise healthy who presents with a few days of shortness of breath which culminated in acute dyspnea today. he states he can't even get out of bed or walk without being severely short of breath. he has no history of this. he and his are from [place], and take a 3-day long car trip back and forth twice a year, but the last time he had a long car ride was in May. he is usually very active. He denies any fevers, chills, chest pain, palpitations, cough, sputum production. denies n/v/c/d or abdominal pain. otherwise has been in his usual state of health. does have a known goiter that he states is smaller than it was a year ago. he says he "had a test on this and they told him it wasn't cancer a year ago." He also had prostate cancer > 10 years ago and had a prostatectomy and since then he states he has been cancer free. In the ED, a CT pulmonary angiogram demonstrated near-saddle pulmonary embolism with near-complete obstruction of all subsegmental arteries. BNP and troponins are elevated in a pattern to suggest biomarker evidence of RV strain. STAT 2d echo demonstrates acute right ventricular dilation and dysfunction with severe pulmonary hypertension. Critical care medicine has been consulted to evaluate and manage his sub-massive pulmonary embolism with associated dyspnea. CBC/BMP: 07/27/17 0530 07/27/17 0530 Significant Findings Laboratory Tests Test 07/25/17 12:15 07/25/17 16:00 07/25/17 21:38 07/26/17 03:14 White Blood Count 12.8 TH/MM3 (4.0-11.0) Neutrophils # (Auto) 8.4 TH/MM3 (1.8-7.7) D-Dimer Quantitative (PE/DVT) 4.30 MG/L FEU (0.00-0.50) Blood Urea Nitrogen 32 MG/DL (7-18) 26 MG/DL (7-18) Creatinine 1.42 MG/DL (0.60-1.30) Chloride Level 109 MEQ/L (98-107) Estimat Glomerular Filtration Rate 49 ML/MIN (>89) 66 ML/MIN (>89) Troponin I 0.10 NG/ML (0.02-0.05) B-Type Natriuretic Peptide 252 PG/ML (0-100) Activated Partial Thromboplast Time 43.9 SEC (24.3-30.1) 60.1 SEC (24.3-30.1) Calcium Level 8.1 MG/DL (8.5-10.1) Test 07/26/17 14:27 07/27/17 05:30 Activated Partial Thromboplast Time 57.4 SEC (24.3-30.1) 55.5 SEC (24.3-30.1) Blood Urea Nitrogen 20 MG/DL (7-18) Calcium Level 8.4 MG/DL (8.5-10.1) Chloride Level 108 MEQ/L (98-107) Estimat Glomerular Filtration Rate 69 ML/MIN (>89) Imaging Last Impressions Upper Extremity Ultrasound 07/27/17 0000 Signed Impressions: Service Date/Time: Thursday, July 27, 2017 11:48 - CONCLUSION: 1. Positive for occlusive and nonocclusive deep venous thrombosis in the left axillary vein and left basilic vein. Negative right upper extremity for DVT. 2. Complex 3 cm bilateral thyroid nodules. Recommend thyroid ultrasound. Benny Banerjee MD Chest X-Ray 07/25/17 1209 Signed Impressions: Service Date/Time: Tuesday, July 25, 2017 12:35 - CONCLUSION: No acute disease. Kelvin Loomis MD Lower Extremity Ultrasound 07/25/17 0000 Signed Impressions: Service Date/Time: Tuesday, July 25, 2017 16:43 - CONCLUSION: No evidence of DVT Jose Stephenson MD CT Angiography 07/25/17 0000 Signed Impressions: Service Date/Time: Tuesday, July 25, 2017 13:15 - CONCLUSION: 1. Large bilateral compatible is an occluding both right and left main pulmonary arteries distally with sparing of the upper lobes. 2. 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 Ubaldo Canales MD Hospital Course = 07/27/17 Discontinue heparin drip, switched to Xarelto. Discussed with oncology, who recommends monitoring overnight on Xarelto. Patient is from [place], although does have emergency traveler's insurance. //Acute bilateral pulmonary embolism with hemodynamic instability on admission. Much improved after TPA. -Although negative bilateral lower extremities for DVT, positive left upper extremity DVT. -Discussed extensively with patient, and Xarelto makes the most sense. Appreciate oncology assistance. Discontinue heparin drip, start Xarelto. Discharge tomorrow if stable. //Thyroid mass. Biopsied and benign as outpatient. Follow-up with primary care. //Pulmonary hypertension. Likely secondary to pulmonary embolism. Expect this has significantly improved already. Follow-up with primary care. //AUDREY. Resolved. Discharge Planning disCharge home tomorrow morning on Xarelto if stable. Pt Condition on Discharge: Good Discharge Disposition: Discharge Home Discharge Time: > 30 minutes Discharge Instructions DIET: Follow Instructions for: Heart Healthy Diet Activities you can perform: Regular-No Restrictions Follow up Referrals: Oncology/Hematology - 1 Week PCP Follow-up - 1 Week New Medications: Rivaroxaban (Xarelto) 15 Mg Tab 15 MG PO Q12HR for Blood Clot Prevention for 21 Days, #42 TAB 0 Refills Rivaroxaban (Xarelto) 20 Mg Tab 20 MG PO DAILY for Blood Clot Prevention, #30 TAB 0 Refills Please start this dosage after completing initial three-week course of 15mg twice daily. Discontinued Medications: Cephalexin Monohydrate (Keflex 250 mg Cap) 250 Mg Cap 250 MG PO TID for post-op, #15 CAP Oxycodone-Acetaminophen 5-325 mg (Percocet 5-325 mg) Oxycodone 5/325 Acetaminophen Tab 1-2 TAB PO Q6H PRN for PAIN, #40 TAB Britton Cooper MD Jul 27, 2017 19:01
[2017-07-27] MEDS ORDERED: ACETAMINOPHEN 325 MG TAB PO ONE (19:45)
--- NOTE | 2017-07-27 20:38 | RADRPT ---
EXAM DATE/TIME: 07/27/2017 20:27 [facility] COMPARISON: No previous studies available for comparison. INDICATIONS : Cephalgia. RADIATION DOSE: 56.35 CTDIvol (mGy) MEDICAL HISTORY : None SURGICAL HISTORY : Prostatectomy. ENCOUNTER: Initial ACUITY: 1 day PAIN SCALE: 5/10 LOCATION: cranial TECHNIQUE: Multiple contiguous axial images were obtained of the head. Using automated exposure control and adj ustment of the mA and/or kV according to patient size, radiation dose was kept as low as reasonably a chievable to obtain optimal diagnostic quality images. DICOM format image data is available electro nically for review and comparison. FINDINGS: CEREBRUM: The ventricles are normal for age. No evidence of midline shift, mass lesion, hemorrhage or acute in farction. No extra-axial fluid collections are seen. POSTERIOR FOSSA: The cerebellum and brainstem are intact. The 4th ventricle is midline. The cerebellopontine angle i s unremarkable. EXTRACRANIAL: The visualized portion of the orbits is intact. SKULL: The calvaria is intact. No evidence of skull fracture. CONCLUSION: No acute intracranial abnormality. Mariusz Coles MD on July 27, 2017 at 20:35 Board Certified Radiologist. This report was verified electronically.
[2017-07-28] VITALS (16 sets, daily range): BP systolic 115–125; BP diastolic 73–89; PULSE 57–78; RESP 18–19; TEMP 98–98.3; O2SAT 95–96
[2017-07-28] MEDS: CHLORHEXIDINE GLUCONATE 2 % 1 PACK (2 CLOTHS) TOP SCH (03:07)
[2017-07-28 05:08] LABS: INTERNATIONAL NORMALIZED RATIO 1.2 RATIO; PROTHROMBIN TIME - PATIENT 11.9 SEC (9.8-11.6)
[2017-07-28 05:19] LABS: CALCIUM 8.6 MG/DL (8.5-10.1); CREATININE 0.96 MG/DL (0.60-1.30)
[2017-07-28] MEDS: DOCUSATE SODIUM 50 MG/SENNA 8.6 MG TAB PO SCH (08:22)
[2017-07-28] MEDS: FAMOTIDINE 20 MG/2 ML VIAL IV PUSH SCH (08:22)
[2017-07-28] MEDS ORDERED: RIVAROXABAN 15 MG TAB PO SCH (09:00)
[2017-07-28 13:26] LABS: HEMATOCRIT 43.4 % (39.0-51.0); HEMOGLOBIN 14.9 GM/DL (13.0-17.0); MEAN CELL VOLUME 89.2 FL (80.0-100.0); MEAN CORPUSCULAR HEMOGLOBIN 30.5 PG (27.0-34.0); MEAN CORPUSCULAR HGB CONC 34.2 % (32.0-36.0); MEAN PLATELET VOLUME 7.7 FL (7.0-11.0); PLATELET COUNT 259 TH/MM3 (150-450); RED BLOOD COUNT 4.87 MIL/MM3 (4.50-5.90); WHITE BLOOD COUNT 8.7 TH/MM3 (4.0-11.0)
--- NOTE | 2017-07-28 13:41 | PD.ONC.PN ---
Subjective Subjective Remarks Afebrile overnight. Patient feeling well. Still able to walk to the bathroom and back without dyspnea. Remains off O2. Tolerating xarelto. Objective Data Date Time Temp Pulse Resp B/P (MAP) Pulse Ox O2 Delivery O2 Flow Rate FiO2 07/28/17 11:01 98.3 62 18 122/73 (89) 95 07/28/17 11:01 95 Room Air 07/28/17 10:00 62 07/28/17 09:00 70 07/28/17 08:15 98.1 70 18 125/89 (101) 07/28/17 08:15 94 Room Air 07/28/17 08:00 72 07/28/17 07:01 57 07/28/17 06:17 58 07/28/17 05:03 59 07/28/17 04:09 78 07/28/17 04:03 98.0 67 19 115/78 (90) 95 07/28/17 03:03 65 07/28/17 03:03 Room Air 07/28/17 02:05 96 07/28/17 02:01 65 07/28/17 01:01 62 07/28/17 00:27 64 07/28/17 00:04 65 07/27/17 23:14 64 07/27/17 23:09 96 Room Air 07/27/17 23:03 98.2 65 16 114/60 (78) 96 07/27/17 22:39 66 07/27/17 22:07 95 21 07/27/17 22:01 18 07/27/17 21:52 68 07/27/17 20:15 68 07/27/17 19:33 97.8 74 21 135/70 (91) 94 07/27/17 19:05 94 Room Air 07/27/17 19:05 71 07/27/17 18:00 64 07/27/17 17:00 66 07/27/17 16:00 68 07/27/17 16:00 92 Room Air 07/27/17 16:00 97.8 68 20 128/77 (94) 99 07/27/17 14:00 66 07/28/17 07/28/17 07/28/17 07:00 15:00 23:00 Intake Total 240 ml Balance 240 ml Result Diagram: 07/28/17 1257 07/28/17 0431 Laboratory Results Laboratory Tests Test 07/28/17 04:31 07/28/17 12:57 Prothrombin Time 11.9 SEC Prothromb Time International Ratio 1.2 RATIO Blood Urea Nitrogen 15 MG/DL Creatinine 0.96 MG/DL Random Glucose 83 MG/DL Calcium Level 8.6 MG/DL Sodium Level 143 MEQ/L Potassium Level 3.8 MEQ/L Chloride Level 109 MEQ/L Carbon Dioxide Level 26.0 MEQ/L Anion Gap 8 MEQ/L Estimat Glomerular Filtration Rate 77 ML/MIN White Blood Count 8.7 TH/MM3 Red Blood Count 4.87 MIL/MM3 Hemoglobin 14.9 GM/DL Hematocrit 43.4 % Mean Corpuscular Volume 89.2 FL Mean Corpuscular Hemoglobin 30.5 PG Mean Corpuscular Hemoglobin Concent 34.2 % Red Cell Distribution Width 14.0 % Platelet Count 259 TH/MM3 Mean Platelet Volume 7.7 FL Culture Results Microbiology Date/Time Source Procedure Growth Status 07/27/17 10:26 Stool Stool Stool Occult Blood (NAIMA) - Final HEMOCCULT NEGATIVE Complete Administered Medications Medications (Trade) Dose Ordered Sig/Bria Route PRN Reason Start Time Stop Time Status Last Admin Dose Admin Famotidine (Pepcid Inj) 20 mg Q12HR IV PUSH 07/25/17 21:00 07/28/17 08:22 Miscellaneous Information 1 Q361D XX 07/25/17 15:00 07/25/17 15:00 Chlorhexidine Gluconate (Chlorhexidine 2% Cloth) 3 pack Taper DAILY@04 TOP 07/26/17 04:00 07/22/18 03:59 07/26/17 04:00 Senna/Docusate Sodium (Jaye-Colace) 1 tab BID PO 07/25/17 21:00 07/27/17 21:01 Rivaroxaban (Xarelto) 15 mg BID PO 07/28/17 09:00 07/28/17 08:21 Objective Remarks GENERAL: Well appearing pleasant gentleman, sitting up in chair next to bed in nad. SKIN: Warm and dry. HEAD: Normocephalic. EYES: No injection or drainage. NECK: Supple, trachea midline. CARDIOVASCULAR: Regular rate and rhythm RESPIRATORY: Breath sounds equal bilaterally. No accessory muscle use. GASTROINTESTINAL: Abdomen soft, non-tender, nondistended. EXTREMITIES: No cyanosis NEUROLOGICAL: No obvious focal deficit. Awake, alert, and oriented x3. Assessment/Plan Problem List: (1) Pulmonary embolism ICD Codes: I26.99 - Other pulmonary embolism without acute cor pulmonale Status: Acute Plan: --currently on Xarelto, will need long-term anticoagulation --Massive pulmonary embolism and left upper extremity deep venous thrombosis which appeared to be unprovoked. --no personal history or family history of thromboembolic event. no obvious inciting event. --CT angiogram showed large bilateral saddle embolism occluding both right and left main pulmonary artery with evidence of right heart strain. --Echocardiogram showed pulmonary hypertension and dilated right chambers. --s/p thrombolytic therapy with excellent response-->symptoms have significantly improved today. --Ultrasound, upper extremities showed thrombus in the left axillary and basilic vein, Assessment 76y/o male admitted with massive pulmonary embolism with associated right heart strain. Now s/p thrombolytic therapy. h/o Prostate cancer diagnosed more than 20 years ago. Goiter Plan 1. continue xarelto 15mg PO BID x 21 days then start xarelto 20mg PO daily 2. face sheet faxed to new patient referrals for follow up in 2-3 weeks Attending Statement The exam, history, and the medical decision-making described in the above note were completed with the assistance of the mid-level provider. I reviewed and agree with the findings presented. I attest that I had a [id number] encounter with the patient on the same day, and personally performed and documented my assessment and findings in the medical record. Off O2. Ambulating without difficulty. Tolerating Xarelto. If d/c, f/u hematology clinic. Problem Qualifiers (1) Pulmonary embolism: Qualified Codes: I26.99 - Other pulmonary embolism without acute cor pulmonale Essence Culp Jul 28, 2017 13:41 Ric Ramirez MD Jul 28, 2017 15:59
== END 2017-07-28 14:15 | disposition home or self-care (01) | DRG 176 ==
LOC: NEPC 11:54 → NEDA 14:23 → HCVI 15:40 → HCPC 07-26 19:30
PROVIDERS: ADMIT Internal Medicine Critical Care Medicine; ATTEND Hospitalist
DX: I26.92 Saddle embolus of pulmonary artery without acute cor pulmonale (principal); N17.9 Acute kidney failure, unspecified; I82.A12 Acute embolism and thrombosis of left axillary vein; I27.20 Pulmonary hypertension, unspecified; I82.612 Acute embolism and thrombosis of superficial veins of left upper extremity; E04.9 Nontoxic goiter, unspecified; Z85.46 Personal history of malignant neoplasm of prostate
CPT/HCPCS: 70450; 71045; 71275; 80048; 80053; 82272; 82550; 83690; 83735; 83880; 84439; 84443; 84484; 85025; 85027; 85379; 85610; 85730; 87641; 93005; 93308; 93970; 94150; 94640; 94667; 94668; J1644; J2997; J7030; Q9967